=== PATIENT | female | born 1965 | race American Indian/Alaskan Native ===

== ENCOUNTER 2022-03-06 06:26 | Emergency (ER) | payer BC, OTHER ==
[2022-03-06 06:32] VITALS: BP 112/94; PULSE 88
[2022-03-06] MEDS ORDERED: Ondansetron 4 MG/2 ML SDV IVPUSH ONE (07:00)
[2022-03-06] MEDS ORDERED: HYDROmorphone 1 MG/ML Syringe IVPUSH ONE (07:00)
[2022-03-06] MEDS ORDERED: Sodium Chloride 0.9% 1,000 ML IV ONE (07:34)
[2022-03-06 07:48] LABS: ANION GAP 13.6 mEq/L (7-13); CHLORIDE,CL 102 mmol/L (98-107); ESTIMATED GFR 103 mL/min (>=60); SODIUM,NA 137 mmol/L (136-145)
[2022-03-06 09:08] LABS: BENZODIAZEPINE,URINE NEGATIVE (NEGATIVE); MDMA (ECSTASY), URINE NEGATIVE (NEGATIVE); METHADONE,URINE NEGATIVE (NEGATIVE); METHAMPHETAMINES,URINE NEGATIVE (NEGATIVE)
[2022-03-06 09:09] LABS: AMPHETAMINES,URINE NEGATIVE (NEGATIVE); BARBITURATES,URINE NEGATIVE (NEGATIVE); OPIATES,URINE POSITIVE (NEGATIVE); OXYCODONE,URINE NEGATIVE (NEGATIVE); PHENCYCLIDINE,URINE NEGATIVE (NEGATIVE); TCA,URINE NEGATIVE (NEGATIVE)
[2022-03-06] MEDS ORDERED: Ketorolac 30 MG/ML SDV IVPUSH ONE (10:00)
[2022-03-06 11:14] LABS: CORONAVIRUS COVID-19 NAA NEGATIVE (NEGATIVE); RESPIRATORY SYNCYTIAL VIR NAA NEGATIVE (NEGATIVE)
[2022-03-06] MEDS ORDERED: Acetaminophen 500 MG Tab PO ONE (13:22)
== END 2022-03-06 13:36 ==
LOC: DL.ED 06:26
DX: M50.023 Cervical disc disorder at C6-C7 level with myelopathy (principal); M47.812 Spondylosis without myelopathy or radiculopathy, cervical region; M51.36 Other intervertebral disc degeneration, lumbar region; S05.11XA Contusion of eyeball and orbital tissues, right eye, initial encounter; R20.2 Paresthesia of skin; G95.20 Unspecified cord compression; R53.1 Weakness; F17.210 Nicotine dependence, cigarettes, uncomplicated; Z20.822 Contact with and (suspected) exposure to COVID-19
CPT/HCPCS: 0241U; 36415; 72125; 72128; 72131; 80053; 80305-QW; 80307; 81001; 82150; 83605; 83690; 84145; 85025; 85651; 86140; 87040; 96361; 96374; 96375; 99284; 99285-25; A9270-GY; J1170; J1885; J2405; J7030

== ENCOUNTER 2022-04-16 22:33 | Emergency (ER) | payer BC, OTHER ==
[2022-04-16 23:29] VITALS: BP 112/72; PULSE 68
== END 2022-04-17 00:22 | disposition home or self-care (01) ==
LOC: DL.ED 22:33
DX: T83.028A Displacement of other urinary catheter, initial encounter (principal); F17.210 Nicotine dependence, cigarettes, uncomplicated; Z79.899 Other long term (current) drug therapy; Z90.49 Acquired absence of other specified parts of digestive tract
CPT/HCPCS: 51702; 81001; 87086; 99283-25

== ENCOUNTER 2022-04-20 00:09 | Emergency (ER) | payer BC, OTHER ==
[2022-04-20 00:43] VITALS: BP 98/70; PULSE 74
[2022-04-20] MEDS ORDERED: Sodium Chloride 0.9% 10 ML Syringe FLUSH PRN (01:43)
[2022-04-20 02:21] LABS: ANION GAP 9.1 mEq/L (7-13); CHLORIDE,CL 105 mmol/L (98-107); SODIUM,NA 141 mmol/L (136-145)
[2022-04-20 02:31] LABS: ESTIMATED GFR 102 mL/min (>=60)
== END 2022-04-20 02:57 | disposition home or self-care (01) ==
LOC: DL.ED 00:09
DX: T83.038A Leakage of other urinary catheter, initial encounter (principal); K21.9 Gastro-esophageal reflux disease without esophagitis; Z72.0 Tobacco use; Z79.899 Other long term (current) drug therapy
CPT/HCPCS: 36415; 80053; 81001; 83605; 85025; 86140; 99283

== ENCOUNTER 2022-04-23 17:41 | Emergency (ER) | payer BC, OTHER ==
[2022-04-23 18:15] VITALS: BP 96/63; PULSE 73
[2022-04-23] MEDS ORDERED: Tolterodine 2 MG Tab PO ONE (18:25)
== END 2022-04-23 18:45 | disposition home or self-care (01) ==
LOC: DL.ED 17:41
DX: T83.9XXA Unspecified complication of genitourinary prosthetic device, implant and graft, initial encounter (principal); N32.89 Other specified disorders of bladder; Z79.899 Other long term (current) drug therapy; Z90.49 Acquired absence of other specified parts of digestive tract
CPT/HCPCS: 99283; A9270

== ENCOUNTER 2022-07-08 20:20 | Emergency (ER) | payer BC, MEDICAID, OTHER ==
[2022-07-08] MEDS ORDERED: Cephalexin 500 MG Cap PO ONE ×2 (20:21→21:19)
[2022-07-08] MEDS ORDERED: Lidocaine 2% Jelly 10 ML Urojet MUCMEM ONE (21:01)
[2022-07-08 21:06] LABS: BARBITURATES,URINE NEGATIVE (NEGATIVE); BENZODIAZEPINE,URINE NEGATIVE (NEGATIVE); MDMA (ECSTASY), URINE NEGATIVE (NEGATIVE); METHADONE,URINE NEGATIVE (NEGATIVE); METHAMPHETAMINES,URINE NEGATIVE (NEGATIVE); OPIATES,URINE NEGATIVE (NEGATIVE); PHENCYCLIDINE,URINE NEGATIVE (NEGATIVE); TCA,URINE NEGATIVE (NEGATIVE)
[2022-07-08 21:07] LABS: AMPHETAMINES,URINE NEGATIVE (NEGATIVE); OXYCODONE,URINE NEGATIVE (NEGATIVE)
[2022-07-08] MEDS ORDERED: Cephalexin 500 MG Cap ONE (21:24)
[2022-07-08 21:40] VITALS: BP 130/90; PULSE 65
== END 2022-07-08 21:30 | disposition home or self-care (01) ==
LOC: DL.ED 20:20
DX: T83.511A Infection and inflammatory reaction due to indwelling urethral catheter, initial encounter (principal); N39.0 Urinary tract infection, site not specified
CPT/HCPCS: 51702; 80305; 81001; 87086; 87088; 87186; 99284; A9270

== ENCOUNTER 2022-12-30 18:36 | Emergency (ER) | payer MEDICAID ==
[2022-12-30 20:08] LABS: HEMATOCRIT 38.5 % (37.0-47.0); HEMOGLOBIN 12.6 g/dL (12.0-16.0); MEAN CORPUSCULAR HGB CONC 32.7 g/dL (33.0-35.0); MEAN CORPUSCULAR VOLUME 94.8 fL (80-100); RED BLOOD CELL COUNT 4.06 10^6/uL (4.2-5.4); WHITE BLOOD CELL COUNT,WBC 7.2 10^3/uL (5.0-10.0)
[2022-12-30 20:25] LABS: ALANINE AMINOTRANSFERASE,ALT 25 U/L (14-59); ALBUMIN 3.2 g/dL (3.4-5.0); ALKALINE PHOSPHATASE 66 U/L (46-116); ANION GAP 15.2 mEq/L (7-13); ASPARTATE AMNIOTRANSFERASE,AST 12 U/L (15-37); BILIRUBIN TOTAL 0.2 mg/dL (0.2-1.0); BLOOD UREA NITROGEN,BUN 23 mg/dL (7-18); BUN/CREATININE RATIO 20.4 (No establ ref range); CALCIUM 8.1 mg/dL (8.5-10.1); CARBON DIOXIDE,CO2 26 mmol/L (21-32); CHLORIDE,CL 100 mmol/L (98-107); CREATININE 1.13 mg/dL (0.55-1.02); GLUCOSE RANDOM 102 mg/dL (70-99); MAGNESIUM 2.1 mg/dL (1.8-2.4); POTASSIUM,K 4.2 mmol/L (3.5-5.1); PROTEIN TOTAL,TP 6.7 g/dL (6.4-8.2); SODIUM,NA 137 mmol/L (136-145)
[2022-12-30 20:29] LABS: A/G RATIO 0.91; ESTIMATED GFR 57 mL/min (>=60)
[2022-12-30 21:34] LABS: APPEARANCE,URINE CLEAR (CLEAR); BILIRUBIN,URINE NEGATIVE (NEGATIVE); COLOR,URINE YELLOW (YELLOW); GLUCOSE,URINE NEGATIVE (NEGATIVE); KETONES,URINE NEGATIVE (NEGATIVE); LEUKOCYTE ESTERASE,URINE TRACE (NEGATIVE); NITRITE,URINE NEGATIVE (NEGATIVE); OCCULT BLOOD,URINE TRACE-INTACT (NEGATIVE); PROTEIN,URINE NEGATIVE (NEGATIVE); UROBILINOGEN,URINE 0.2 mg/dL (0.2-1.0)
[2022-12-30 21:41] LABS: AMORPHOUS SEDIMENT,URINE FEW /HPF (NOT SEEN); BACTERIA,URINE FEW /HPF (0-FEW/HPF); EPITHELIAL CELLS,URINE FEW /HPF (NOT SEEN); MUCUS,URINE RARE /LPF (NOT SEEN); RBC,URINE 0-5 /HPF (0-5); WBC,URINE 0-5 /HPF (0-5/HPF)
[2022-12-30 22:41] VITALS: BP 132/95; PULSE 59
== END 2022-12-30 22:20 | disposition home or self-care (01) ==
LOC: DL.ED 18:36
DX: T83.091A Other mechanical complication of indwelling urethral catheter, initial encounter (principal); K21.9 Gastro-esophageal reflux disease without esophagitis; Z79.899 Other long term (current) drug therapy
CPT/HCPCS: 36415; 51702; 80053; 81001; 83735; 85027; 87086; 87088; 87186; 99283; 99284

== ENCOUNTER 2023-04-27 04:03 | Emergency (ER) | payer MEDICAID ==
[2023-04-27] MEDS ORDERED: Fluconazole 100 MG Tab PO ONE (04:57)
[2023-04-27 05:06] LABS: APPEARANCE,URINE CLEAR (CLEAR); BILIRUBIN,URINE NEGATIVE (NEGATIVE); COLOR,URINE YELLOW (YELLOW); GLUCOSE,URINE NEGATIVE (NEGATIVE); KETONES,URINE NEGATIVE (NEGATIVE); LEUKOCYTE ESTERASE,URINE SMALL (NEGATIVE); NITRITE,URINE NEGATIVE (NEGATIVE); OCCULT BLOOD,URINE MODERATE (NEGATIVE); PROTEIN,URINE NEGATIVE (NEGATIVE); UROBILINOGEN,URINE 0.2 mg/dL (0.2-1.0)
[2023-04-27 05:17] LABS: BACTERIA,URINE FEW /HPF (0-FEW/HPF); EPITHELIAL CELLS,URINE FEW /HPF (NOT SEEN); MUCUS,URINE RARE /LPF (NOT SEEN)
[2023-04-27 05:47] VITALS: BP 122/86; PULSE 69
[2023-04-27] MEDS ORDERED: Fluconazole 100 MG Tab PO SCH (09:00)
== END 2023-04-27 05:37 | disposition home or self-care (01) ==
LOC: DL.ED 04:03
DX: T83.098A Other mechanical complication of other urinary catheter, initial encounter (principal); B37.31 Acute candidiasis of vulva and vagina; K21.9 Gastro-esophageal reflux disease without esophagitis; Z79.899 Other long term (current) drug therapy; Z98.890 Other specified postprocedural states
CPT/HCPCS: 81001; 87086; 99283; 99284; A9270-GY

== ENCOUNTER 2023-09-08 13:41 | Emergency (ER) | payer MEDICAID ==
[2023-09-08] MEDS: Gabapentin 300 MG Cap PO ONE (14:36)
[2023-09-08 14:38] LABS: BASOPHILS PERCENT AUTO 0.6 % (0.0-1.0); EOSINOPHILS PERCENT AUTO 5.6 % (1.0-3.0); HEMOGLOBIN 13.3 g/dL (12.0-16.0); LYMPHOCYTES PERCENT AUTO 39.1 % (20.5-50.1); MEAN CORPUSCULAR HEMOGLOBIN 30.9 pg (27.0-34.0); MEAN CORPUSCULAR HGB CONC 33.3 g/dL (33.0-35.0); MONOCYTES PERCENT AUTO 8.1 % (2-8); NEUTROPHILS PERCENT AUTO 46.6 % (42.2-75.2); PLATELET COUNT,PLT 192 10^3/uL (150-450)
[2023-09-08 14:57] LABS: ALANINE AMINOTRANSFERASE,ALT 15 U/L (14-59); ALBUMIN 3.1 g/dL (3.4-5.0); ALKALINE PHOSPHATASE 78 U/L (46-116); ANION GAP 14.4 mEq/L (7-13); ASPARTATE AMNIOTRANSFERASE,AST 9 U/L (15-37); BILIRUBIN TOTAL 0.4 mg/dL (0.2-1.0); BLOOD UREA NITROGEN,BUN 13 mg/dL (7-18); BUN/CREATININE RATIO 19.1 (No establ ref range); CALCIUM 8.4 mg/dL (8.5-10.1); CARBON DIOXIDE,CO2 26 mmol/L (21-32); CHLORIDE,CL 105 mmol/L (98-107); CREATININE 0.68 mg/dL (0.55-1.02); GLUCOSE RANDOM 102 mg/dL (70-99); POTASSIUM,K 3.4 mmol/L (3.5-5.1); PROTEIN TOTAL,TP 6.7 g/dL (6.4-8.2); SODIUM,NA 142 mmol/L (136-145)
[2023-09-08 15:00] LABS: A/G RATIO 0.86; ESTIMATED GFR 102 mL/min (>=60)
[2023-09-08] MEDS ORDERED: Gabapentin 300 MG Cap ONE (15:33)
== END 2023-09-08 14:35 | disposition home or self-care (01) ==
LOC: DL.ED 13:41
DX: G62.9 Polyneuropathy, unspecified (principal); F17.210 Nicotine dependence, cigarettes, uncomplicated; Z86.19 Personal history of other infectious and parasitic diseases; Z90.49 Acquired absence of other specified parts of digestive tract
CPT/HCPCS: 36415; 80053; 85025; 99283; 99284; A9270

== ENCOUNTER 2024-04-22 16:04 | Emergency (ER) | payer MEDICAID ==
[2024-04-22 17:42] LABS: APPEARANCE,URINE SLIGHTLY CLOUDY (CLEAR); BILIRUBIN,URINE NEGATIVE (NEGATIVE); COLOR,URINE YELLOW (YELLOW); GLUCOSE,URINE NEGATIVE (NEGATIVE); KETONES,URINE NEGATIVE (NEGATIVE); LEUKOCYTE ESTERASE,URINE MODERATE (NEGATIVE); NITRITE,URINE NEGATIVE (NEGATIVE); OCCULT BLOOD,URINE SMALL (NEGATIVE); PROTEIN,URINE 30 (NEGATIVE)
[2024-04-22 17:52] LABS: BACTERIA,URINE FEW /HPF (0-FEW/HPF); EPITHELIAL CELLS,URINE FEW /HPF (NOT SEEN); MUCUS,URINE FEW /LPF (NOT SEEN); WBC,URINE 30-40 /HPF (0-5/HPF)
[2024-04-22] MEDS: cefTRIAXone 1 GM, Lidocaine 1% 2.1 ML IM ONE (18:11)
[2024-04-22 18:35] VITALS: BP 126/84; PULSE 86
== END 2024-04-22 18:28 | disposition home or self-care (01) ==
LOC: DL.ED 16:04
DX: N39.0 Urinary tract infection, site not specified (principal); Z90.49 Acquired absence of other specified parts of digestive tract; F17.210 Nicotine dependence, cigarettes, uncomplicated; Z79.899 Other long term (current) drug therapy
CPT/HCPCS: 81001; 87086; 96372; 99283; 99284; J0696; 87088; 87186; J3490

== ENCOUNTER 2024-07-18 10:46 | Emergency (ER) | payer BC, OTHER ==
[2024-07-18 12:02] LABS: APPEARANCE,URINE CLEAR (CLEAR); BILIRUBIN,URINE NEGATIVE (NEGATIVE); GLUCOSE,URINE NEGATIVE (NEGATIVE); KETONES,URINE NEGATIVE (NEGATIVE); LEUKOCYTE ESTERASE,URINE NEGATIVE (NEGATIVE); NITRITE,URINE NEGATIVE (NEGATIVE); OCCULT BLOOD,URINE TRACE-INTACT (NEGATIVE); PROTEIN,URINE NEGATIVE (NEGATIVE); UROBILINOGEN,URINE 0.2 mg/dL (0.2-1.0)
[2024-07-18 12:03] LABS: COLOR,URINE STRAW (YELLOW)
[2024-07-18 12:15] LABS: BACTERIA,URINE FEW /HPF (0-FEW/HPF); EPITHELIAL CELLS,URINE NOT SEEN /HPF (NOT SEEN); RBC,URINE 0-5 /HPF (0-5); WBC,URINE 0-5 /HPF (0-5/HPF)
[2024-07-18 12:25] VITALS: BP 130/77; PULSE 71
== END 2024-07-18 12:10 | disposition home or self-care (01) ==
LOC: DL.ED 10:46
DX: T83.091A Other mechanical complication of indwelling urethral catheter, initial encounter (principal); Z90.49 Acquired absence of other specified parts of digestive tract; Z79.899 Other long term (current) drug therapy
CPT/HCPCS: 51702; 81001; 99283

== ENCOUNTER 2024-10-18 09:46 | Emergency (ER) | payer MEDICARE, OTHER ==
[2024-10-18] MEDS: Phenazopyridine 95 MG Tab PO ONE (10:24)
[2024-10-18] MEDS: Ketorolac 30 MG/ML SDV IM ONE (10:24)
[2024-10-18 10:26] VITALS: BP 142/92; PULSE 92
[2024-10-18 10:43] LABS: APPEARANCE,URINE SLIGHTLY CLOUDY (CLEAR); BILIRUBIN,URINE NEGATIVE (NEGATIVE); COLOR,URINE YELLOW (YELLOW); GLUCOSE,URINE NEGATIVE (NEGATIVE); KETONES,URINE NEGATIVE (NEGATIVE); LEUKOCYTE ESTERASE,URINE SMALL (NEGATIVE); NITRITE,URINE POSITIVE (NEGATIVE); OCCULT BLOOD,URINE MODERATE (NEGATIVE); PROTEIN,URINE 100 (NEGATIVE); UROBILINOGEN,URINE 0.2 mg/dL (0.2-1.0)
[2024-10-18 10:52] LABS: WBC,URINE 20-30 /HPF (0-5/HPF)
[2024-10-18 10:53] LABS: BACTERIA,URINE MANY /HPF (0-FEW/HPF); EPITHELIAL CELLS,URINE FEW /HPF (NOT SEEN); MUCUS,URINE FEW /LPF (NOT SEEN)
[2024-10-18] MEDS: Take Home: Cephalexin 500 MG Cap, 6 Cap Pack PO ONE (11:11)
== END 2024-10-18 11:26 | disposition home or self-care (01) ==
LOC: DL.ED 09:46
DX: T83.091A Other mechanical complication of indwelling urethral catheter, initial encounter (principal); Z79.899 Other long term (current) drug therapy; Z86.16 Personal history of COVID-19; Z90.49 Acquired absence of other specified parts of digestive tract
CPT/HCPCS: 81001; 87086; 87088; 87186; 87210; 96372; 99283; 99284; A9270; J1885

== ENCOUNTER 2024-11-22 19:22 | Emergency (ER) | payer MEDICARE, OTHER ==
[2024-11-22 21:13] LABS: APPEARANCE,URINE CLOUDY (CLEAR); BILIRUBIN,URINE NEGATIVE (NEGATIVE); COLOR,URINE YELLOW (YELLOW); GLUCOSE,URINE NEGATIVE (NEGATIVE); KETONES,URINE NEGATIVE (NEGATIVE); LEUKOCYTE ESTERASE,URINE SMALL (NEGATIVE); NITRITE,URINE POSITIVE (NEGATIVE); OCCULT BLOOD,URINE TRACE-LYSED (NEGATIVE); PROTEIN,URINE NEGATIVE (NEGATIVE)
[2024-11-22 21:27] LABS: BACTERIA,URINE MANY /HPF (0-FEW/HPF); EPITHELIAL CELLS,URINE FEW /HPF (NOT SEEN); RBC,URINE 0-5 /HPF (0-5); WBC,URINE 40-50 /HPF (0-5/HPF)
[2024-11-22] MEDS ORDERED: Sodium Chloride 0.9% 10 ML Syringe FLUSH PRN (21:32)
[2024-11-22 21:57] LABS: BASOPHILS PERCENT AUTO 0.5 % (0.0-1.0); EOSINOPHILS PERCENT AUTO 5.3 % (1.0-3.0); HEMATOCRIT 35.4 % (37.0-47.0); LYMPHOCYTES PERCENT AUTO 39.6 % (20.5-50.1); MEAN CORPUSCULAR HGB CONC 33.9 g/dL (33.0-35.0); MEAN CORPUSCULAR VOLUME 91.5 fL (80-100); MONOCYTES PERCENT AUTO 9.5 % (2-8); NEUTROPHILS PERCENT AUTO 45.1 % (42.2-75.2); PLATELET COUNT,PLT 226 10^3/uL (150-450); RED BLOOD CELL COUNT 3.87 10^6/uL (4.2-5.4); WHITE BLOOD CELL COUNT,WBC 7.5 10^3/uL (5.0-10.0)
[2024-11-22] MEDS: Sodium Chloride 0.9% 1,000 ML IV ONE (22:13)
[2024-11-22] MEDS: cefTRIAXone 2 GM Vial IVPUSH ONE (22:14)
[2024-11-22 22:24] LABS: LACTIC ACID 0.4 mmol/L (0.4-2.0)
[2024-11-22 22:30] LABS: ALANINE AMINOTRANSFERASE,ALT 16 U/L (14-59); ALBUMIN 2.9 g/dL (3.4-5.0); ALKALINE PHOSPHATASE 57 U/L (46-116); ANION GAP 11.9 mEq/L (7-13); ASPARTATE AMNIOTRANSFERASE,AST 12 U/L (15-37); BILIRUBIN TOTAL 0.3 mg/dL (0.2-1.0); BLOOD UREA NITROGEN,BUN 13 mg/dL (7-18); BUN/CREATININE RATIO 18.1 (No establ ref range); CALCIUM 8.1 mg/dL (8.5-10.1); CARBON DIOXIDE,CO2 26 mmol/L (21-32); CHLORIDE,CL 99 mmol/L (98-107); CREATININE 0.72 mg/dL (0.55-1.02); GLUCOSE RANDOM 96 mg/dL (70-99); MAGNESIUM 1.9 mg/dL (1.8-2.4); POTASSIUM,K 3.9 mmol/L (3.5-5.1); SODIUM,NA 133 mmol/L (136-145)
[2024-11-22 22:34] LABS: A/G RATIO 0.94; C-REACTIVE PROTEIN < 0.50 ng/dL (<=0.50); ESTIMATED GFR 97 mL/min (>=60)
[2024-11-22 23:11] VITALS: BP 97/66; PULSE 80
== END 2024-11-22 23:27 | disposition home or self-care (01) ==
LOC: DL.ED 19:22
DX: N39.0 Urinary tract infection, site not specified (principal); Z79.899 Other long term (current) drug therapy; Z86.16 Personal history of COVID-19; Z90.49 Acquired absence of other specified parts of digestive tract
CPT/HCPCS: 36415; 80053; 81001; 83605; 83735; 85025; 86140; 87086; 96361; 96374; 99284; J0696; J7030; 87088; 87186

== ENCOUNTER 2024-12-25 21:30 | Emergency (ER) | payer MEDICARE, OTHER ==
[2024-12-25] MEDS ORDERED: Sodium Chloride 0.9% 10 ML Syringe FLUSH PRN (21:50)
[2024-12-25 22:12] LABS: BASOPHILS PERCENT AUTO 0.7 % (0.0-1.0); EOSINOPHILS PERCENT AUTO 4.6 % (1.0-3.0); LYMPHOCYTES PERCENT AUTO 33.8 % (20.5-50.1); MONOCYTES PERCENT AUTO 8.0 % (2-8); NEUTROPHILS PERCENT AUTO 52.9 % (42.2-75.2); PLATELET COUNT,PLT 242 10^3/uL (150-450); RED BLOOD CELL COUNT 3.79 10^6/uL (4.2-5.4); WHITE BLOOD CELL COUNT,WBC 7.0 10^3/uL (5.0-10.0)
[2024-12-25 22:29] LABS: ALANINE AMINOTRANSFERASE,ALT 19 U/L (14-59); ASPARTATE AMNIOTRANSFERASE,AST 13 U/L (15-37); BILIRUBIN TOTAL 0.4 mg/dL (0.2-1.0); BLOOD UREA NITROGEN,BUN 10 mg/dL (7-18); CARBON DIOXIDE,CO2 28 mmol/L (21-32); CHLORIDE,CL 100 mmol/L (98-107); CREATININE 0.72 mg/dL (0.55-1.02); GLUCOSE RANDOM 88 mg/dL (70-99); POTASSIUM,K 4.1 mmol/L (3.5-5.1); PROTEIN TOTAL,TP 6.1 g/dL (6.4-8.2); SODIUM,NA 132 mmol/L (136-145)
[2024-12-25 22:33] LABS: LACTIC ACID 0.7 mmol/L (0.4-2.0)
[2024-12-25 22:34] LABS: A/G RATIO 1.03; ESTIMATED GFR 97 mL/min (>=60)
[2024-12-25 23:05] LABS: APPEARANCE,URINE SLIGHTLY CLOUDY (CLEAR); GLUCOSE,URINE NEGATIVE (NEGATIVE); OCCULT BLOOD,URINE NEGATIVE (NEGATIVE)
[2024-12-25 23:15] LABS: EPITHELIAL CELLS,URINE FEW /HPF (NOT SEEN)
[2024-12-26 00:01] VITALS: BP 109/70; PULSE 71
[2024-12-26] MEDS: Take Home: Ciprofloxacin HCl 500 MG, 6 Tab Pack PO ONE (00:23)
== END 2024-12-26 02:01 | disposition home or self-care (01) ==
LOC: DL.ED 21:30
DX: B37.31 Acute candidiasis of vulva and vagina (principal); N30.00 Acute cystitis without hematuria; N31.9 Neuromuscular dysfunction of bladder, unspecified; M19.90 Unspecified osteoarthritis, unspecified site; F17.210 Nicotine dependence, cigarettes, uncomplicated; Z79.899 Other long term (current) drug therapy; Z79.51 Long term (current) use of inhaled steroids; Z86.16 Personal history of COVID-19; Z90.49 Acquired absence of other specified parts of digestive tract; Z96.0 Presence of urogenital implants
CPT/HCPCS: 36415; 80053; 81001; 83605; 85025; 87086; 87088; 87186; 87210; 99284; A9270

== ENCOUNTER 2025-01-08 07:51 | Inpatient (IN) | payer MEDICARE, OTHER ==
[2025-01-08] MEDS ORDERED: Sodium Chloride 0.9% 10 ML Syringe FLUSH PRN (08:04)
[2025-01-08] MEDS: Ondansetron 4 MG/2 ML SDV IVPUSH ONE (08:18)
[2025-01-08] MEDS: fentaNYL 100 MCG/2 ML SDV IVPUSH ONE (08:19)
[2025-01-08 08:25] LABS: BASOPHILS PERCENT AUTO 0.4 % (0.0-1.0); EOSINOPHILS PERCENT AUTO 0.7 % (1.0-3.0); LYMPHOCYTES PERCENT AUTO 16.8 % (20.5-50.1); MONOCYTES PERCENT AUTO 6.4 % (2-8); NEUTROPHILS PERCENT AUTO 75.7 % (42.2-75.2); PLATELET COUNT,PLT 273 10^3/uL (150-450); RED BLOOD CELL COUNT 4.77 10^6/uL (4.2-5.4); WHITE BLOOD CELL COUNT,WBC 8.3 10^3/uL (5.0-10.0)
[2025-01-08 08:44] LABS: A/G RATIO 1.1; ALANINE AMINOTRANSFERASE,ALT 26 U/L (14-59); ASPARTATE AMNIOTRANSFERASE,AST 13 U/L (15-37); BILIRUBIN TOTAL 1.0 mg/dL (0.2-1.0); BLOOD UREA NITROGEN,BUN 11 mg/dL (7-18); CARBON DIOXIDE,CO2 24 mmol/L (21-32); CREATININE 0.76 mg/dL (0.55-1.02); GLUCOSE RANDOM 91 mg/dL (70-99); PROTEIN TOTAL,TP 7.4 g/dL (6.4-8.2)
[2025-01-08 08:51] LABS: CHLORIDE,CL 87 mmol/L (98-107); POTASSIUM,K 4.2 mmol/L (3.5-5.1); SODIUM,NA 125 mmol/L (136-145)
[2025-01-08 08:55] LABS: ESTIMATED GFR 91 mL/min (>=60)
[2025-01-08] MEDS: Magnesium Sulfate 2 GM/50 mL 2 GM in Premix Bag 1 BAG IV ONE (09:04)
[2025-01-08] MEDS: Iopamidol 612 MG/ML 100 ML Bottle IVPUSH ONE (09:07)
[2025-01-08 09:37] LABS: APPEARANCE,URINE SLIGHTLY CLOUDY (CLEAR); GLUCOSE,URINE NEGATIVE (NEGATIVE); OCCULT BLOOD,URINE LARGE (NEGATIVE)
[2025-01-08 09:49] LABS: EPITHELIAL CELLS,URINE RARE /HPF (NOT SEEN)
[2025-01-08] MEDS ORDERED: Ketorolac 30 MG/ML SDV IVPUSH PRN (10:42)
[2025-01-08 10:55] LABS: AMPHETAMINES,URINE NEGATIVE (NEGATIVE); BARBITURATES,URINE NEGATIVE (NEGATIVE); MDMA (ECSTASY), URINE NEGATIVE (NEGATIVE); METHAMPHETAMINES,URINE NEGATIVE (NEGATIVE); OPIATES,URINE NEGATIVE (NEGATIVE); OXYCODONE,URINE NEGATIVE (NEGATIVE); PHENCYCLIDINE,URINE NEGATIVE (NEGATIVE); TCA,URINE NEGATIVE (NEGATIVE)
[2025-01-08 11:02] LABS: INR 1.0 (0.9-1.2); PTT,PARTIAL THROMBOPLSTIN TIME 29.0 SEC (22.0-34.0)
[2025-01-08] MEDS ORDERED: Ondansetron 4 MG/2 ML SDV IVPUSH PRN (14:00)
[2025-01-08] MEDS: Psyllium Husk Powder (4 in 1) 3.4 GM Packet PO SCH (14:22)
[2025-01-08 15:16] LABS: IRON,FE 95.0 ug/dL (50-170); PERCENT FE SATURATION 34.1 % (20.0-50.0)
[2025-01-08 15:29] LABS: FOLIC ACID 15.1 ng/mL (8.6-58.9)
[2025-01-09 06:31] LABS: BASOPHILS PERCENT AUTO 1.0 % (0.0-1.0); EOSINOPHILS PERCENT AUTO 2.2 % (1.0-3.0); LYMPHOCYTES PERCENT AUTO 34.6 % (20.5-50.1); MONOCYTES PERCENT AUTO 8.7 % (2-8); NEUTROPHILS PERCENT AUTO 53.5 % (42.2-75.2); PLATELET COUNT,PLT 260 10^3/uL (150-450); RED BLOOD CELL COUNT 3.90 10^6/uL (4.2-5.4); WHITE BLOOD CELL COUNT,WBC 5.8 10^3/uL (5.0-10.0)
[2025-01-09 06:51] LABS: ALANINE AMINOTRANSFERASE,ALT 24.0 U/L (14-59); ASPARTATE AMNIOTRANSFERASE,AST 14.0 U/L (15-37); BILIRUBIN TOTAL 0.6 mg/dL (0.2-1.0); BLOOD UREA NITROGEN,BUN 8.0 mg/dL (7-18); CARBON DIOXIDE,CO2 26.0 mmol/L (21-32); CHLORIDE,CL 98.0 mmol/L (98-107); CREATININE 0.41 mg/dL (0.55-1.02); EST CRCL DRUG DOSING (CG) 129.15 mL/min; GLUCOSE RANDOM 81.0 mg/dL (70-99); POTASSIUM,K 4.1 mmol/L (3.5-5.1); PROTEIN TOTAL,TP 5.7 g/dL (6.4-8.2); SODIUM,NA 133.0 mmol/L (136-145)
[2025-01-09 06:56] LABS: A/G RATIO 1.04; ESTIMATED GFR 114.0 mL/min (>=60)
[2025-01-09] MEDS: Tolterodine 2 MG Cap.ER PO SCH (08:46)
[2025-01-10 05:34] LABS: BASOPHILS PERCENT AUTO 1.0 % (0.0-1.0); EOSINOPHILS PERCENT AUTO 4.0 % (1.0-3.0); LYMPHOCYTES PERCENT AUTO 35.9 % (20.5-50.1); MONOCYTES PERCENT AUTO 9.5 % (2-8); NEUTROPHILS PERCENT AUTO 49.6 % (42.2-75.2); PLATELET COUNT,PLT 224 10^3/uL (150-450); RED BLOOD CELL COUNT 3.70 10^6/uL (4.2-5.4); WHITE BLOOD CELL COUNT,WBC 6.3 10^3/uL (5.0-10.0)
[2025-01-10 06:10] LABS: ALANINE AMINOTRANSFERASE,ALT 27.0 U/L (14-59); ASPARTATE AMNIOTRANSFERASE,AST 17.0 U/L (15-37); BILIRUBIN TOTAL 0.4 mg/dL (0.2-1.0); BLOOD UREA NITROGEN,BUN 8.0 mg/dL (7-18); CARBON DIOXIDE,CO2 27.0 mmol/L (21-32); CHLORIDE,CL 101.0 mmol/L (98-107); CREATININE 0.41 mg/dL (0.55-1.02); EST CRCL DRUG DOSING (CG) 122.73 mL/min; GLUCOSE RANDOM 79.0 mg/dL (70-99); POTASSIUM,K 3.6 mmol/L (3.5-5.1); PROTEIN TOTAL,TP 5.4 g/dL (6.4-8.2); SODIUM,NA 134.0 mmol/L (136-145)
[2025-01-10 06:11] LABS: A/G RATIO 1.0; ESTIMATED GFR 114.0 mL/min (>=60)
[2025-01-10] MEDS: Magnesium Sulfate 2 GM/50 mL 2 GM in Premix Bag 1 BAG IV ONE (08:41)
[2025-01-11 05:46] LABS: BASOPHILS PERCENT AUTO 1.0 % (0.0-1.0); EOSINOPHILS PERCENT AUTO 5.2 % (1.0-3.0); LYMPHOCYTES PERCENT AUTO 37.0 % (20.5-50.1); MONOCYTES PERCENT AUTO 8.1 % (2-8); NEUTROPHILS PERCENT AUTO 48.7 % (42.2-75.2); PLATELET COUNT,PLT 231 10^3/uL (150-450); RED BLOOD CELL COUNT 3.73 10^6/uL (4.2-5.4); WHITE BLOOD CELL COUNT,WBC 6.8 10^3/uL (5.0-10.0)
[2025-01-11 06:16] LABS: ALANINE AMINOTRANSFERASE,ALT 25.0 U/L (14-59); ASPARTATE AMNIOTRANSFERASE,AST 16.0 U/L (15-37); BILIRUBIN TOTAL 0.5 mg/dL (0.2-1.0); BLOOD UREA NITROGEN,BUN 8.0 mg/dL (7-18); CARBON DIOXIDE,CO2 27.0 mmol/L (21-32); CHLORIDE,CL 102.0 mmol/L (98-107); CREATININE 0.33 mg/dL (0.55-1.02); EST CRCL DRUG DOSING (CG) 153.95 mL/min; GLUCOSE RANDOM 85.0 mg/dL (70-99); POTASSIUM,K 3.9 mmol/L (3.5-5.1); PROTEIN TOTAL,TP 5.6 g/dL (6.4-8.2); SODIUM,NA 134.0 mmol/L (136-145)
[2025-01-11 06:17] LABS: A/G RATIO 1.0; ESTIMATED GFR 120.0 mL/min (>=60)
[2025-01-11 12:49] VITALS: BP 134/88; PULSE 72
== END 2025-01-11 13:20 | disposition home or self-care (01) | DRG 690 ==
LOC: DL.ED 07:51 → DL.MS 10:09 → DL.ED 10:16
PROVIDERS: ADMIT Student in an Organized Health Care Education/Training Program; ATTEND Student in an Organized Health Care Education/Training Program
DX: N30.01 Acute cystitis with hematuria (principal); E87.1 Hypo-osmolality and hyponatremia; M47.12 Other spondylosis with myelopathy, cervical region; Z66 Do not resuscitate; E86.0 Dehydration; H54.7 Unspecified visual loss; G62.9 Polyneuropathy, unspecified; E88.09 Other disorders of plasma-protein metabolism, not elsewhere classified; F32.A Depression, unspecified; E83.42 Hypomagnesemia; K21.9 Gastro-esophageal reflux disease without esophagitis; F17.200 Nicotine dependence, unspecified, uncomplicated; E87.8 Other disorders of electrolyte and fluid balance, not elsewhere classified; N31.9 Neuromuscular dysfunction of bladder, unspecified; M19.90 Unspecified osteoarthritis, unspecified site; Z86.16 Personal history of COVID-19; Z90.49 Acquired absence of other specified parts of digestive tract; Z98.891 History of uterine scar from previous surgery; Z88.8 Allergy status to other drugs, medicaments and biological substances; Z79.899 Other long term (current) drug therapy; Z98.890 Other specified postprocedural states
CPT/HCPCS: 36415; 51705; 74177; 80053; 80305; 81001; 82607; 82728; 82746; 83540; 83550; 83605; 83735; 85025; 85610; 85730; 86140; 87040 ×2; 87086; 96361; 96365; 96375; 99285; A9270 ×2; J0692; J2405; J3010; J3475; J7030; Q9967; 84295; 94010; 99223; 99232; 99238; J1171; J1650

== ENCOUNTER 2025-01-19 07:42 | Emergency (ER) | payer MEDICARE, OTHER ==
[2025-01-19 08:03] LABS: APPEARANCE,URINE CLEAR (CLEAR); GLUCOSE,URINE NEGATIVE (NEGATIVE); OCCULT BLOOD,URINE MODERATE (NEGATIVE)
[2025-01-19 08:11] VITALS: BP 127/92; PULSE 79
[2025-01-19 08:15] LABS: EPITHELIAL CELLS,URINE RARE /HPF (NOT SEEN)
== END 2025-01-19 08:30 | disposition home or self-care (01) ==
LOC: DL.ED 07:42
DX: N30.01 Acute cystitis with hematuria (principal); B37.31 Acute candidiasis of vulva and vagina; K21.9 Gastro-esophageal reflux disease without esophagitis; Z88.8 Allergy status to other drugs, medicaments and biological substances; Z79.899 Other long term (current) drug therapy; Z86.16 Personal history of COVID-19; Z90.49 Acquired absence of other specified parts of digestive tract
CPT/HCPCS: 81001; 99283

== ENCOUNTER 2025-01-20 01:59 | Emergency (ER) | payer MEDICARE, OTHER ==
[2025-01-20 02:46] LABS: BASOPHILS PERCENT AUTO 0.5 % (0.0-1.0); EOSINOPHILS PERCENT AUTO 5.5 % (1.0-3.0); LYMPHOCYTES PERCENT AUTO 27.2 % (20.5-50.1); MONOCYTES PERCENT AUTO 7.4 % (2-8); NEUTROPHILS PERCENT AUTO 59.4 % (42.2-75.2); PLATELET COUNT,PLT 246 10^3/uL (150-450); RED BLOOD CELL COUNT 4.02 10^6/uL (4.2-5.4); WHITE BLOOD CELL COUNT,WBC 7.3 10^3/uL (5.0-10.0)
[2025-01-20] MEDS: Phenazopyridine 95 MG Tab PO ONE (02:51)
[2025-01-20 03:01] LABS: A/G RATIO 1.1; ALANINE AMINOTRANSFERASE,ALT 26.0 U/L (14-59); ASPARTATE AMNIOTRANSFERASE,AST 17.0 U/L (15-37); BILIRUBIN TOTAL 0.3 mg/dL (0.2-1.0); BLOOD UREA NITROGEN,BUN 14.0 mg/dL (7-18); CARBON DIOXIDE,CO2 31.0 mmol/L (21-32); CHLORIDE,CL 99.0 mmol/L (98-107); CREATININE 0.61 mg/dL (0.55-1.02); EST CRCL DRUG DOSING (CG) 83.16 mL/min; ESTIMATED GFR 104.0 mL/min (>=60); GLUCOSE RANDOM 102.0 mg/dL (70-99); POTASSIUM,K 4.5 mmol/L (3.5-5.1); PROTEIN TOTAL,TP 6.6 g/dL (6.4-8.2); SODIUM,NA 134.0 mmol/L (136-145)
[2025-01-20 03:04] LABS: LACTIC ACID 1.1 mmol/L (0.4-2.0)
[2025-01-20 04:17] VITALS: BP 119/75; PULSE 62
== END 2025-01-20 03:50 | disposition home or self-care (01) ==
LOC: DL.ED 01:59
DX: R30.0 Dysuria (principal); F17.210 Nicotine dependence, cigarettes, uncomplicated; K21.9 Gastro-esophageal reflux disease without esophagitis; Z86.16 Personal history of COVID-19; Z79.899 Other long term (current) drug therapy; Z88.8 Allergy status to other drugs, medicaments and biological substances
CPT/HCPCS: 36415; 80053; 83605; 83690; 85025; 99283; A9270

== ENCOUNTER 2025-03-12 14:04 | Emergency (ER) | payer MEDICARE, OTHER ==
[2025-03-12] MEDS ORDERED: Sodium Chloride 0.9% 10 ML Syringe FLUSH PRN (14:37)
[2025-03-12 14:47] LABS: BASOPHILS PERCENT AUTO 0.3 % (0.0-1.0); EOSINOPHILS PERCENT AUTO 3.4 % (1.0-3.0); LYMPHOCYTES PERCENT AUTO 29.5 % (20.5-50.1); MONOCYTES PERCENT AUTO 7.4 % (2-8); NEUTROPHILS PERCENT AUTO 59.4 % (42.2-75.2); PLATELET COUNT,PLT 231 10^3/uL (150-450); RED BLOOD CELL COUNT 4.50 10^6/uL (4.2-5.4); WHITE BLOOD CELL COUNT,WBC 8.6 10^3/uL (5.0-10.0)
[2025-03-12] MEDS: fentaNYL 100 MCG/2 ML SDV IVPUSH ONE (14:47)
[2025-03-12 15:07] LABS: A/G RATIO 0.9; ALANINE AMINOTRANSFERASE,ALT 24.0 U/L (14-59); ASPARTATE AMNIOTRANSFERASE,AST 15.0 U/L (15-37); BILIRUBIN TOTAL 0.6 mg/dL (0.2-1.0); BLOOD UREA NITROGEN,BUN 16.0 mg/dL (7-18); CARBON DIOXIDE,CO2 22.0 mmol/L (21-32); CREATININE 0.53 mg/dL (0.55-1.02); EST CRCL DRUG DOSING (CG) 99.42 mL/min; GLUCOSE RANDOM 81.0 mg/dL (70-99); POTASSIUM,K 4.0 mmol/L (3.5-5.1); PROTEIN TOTAL,TP 7.4 g/dL (6.4-8.2); SODIUM,NA 132.0 mmol/L (136-145)
[2025-03-12 15:13] LABS: CHLORIDE,CL 97.0 mmol/L (98-107); ESTIMATED GFR 107.0 mL/min (>=60)
[2025-03-12] MEDS: Magnesium Sulfate 2 GM/50 mL 2 GM in Premix Bag 1 BAG IV ONE (15:31)
[2025-03-12 15:44] LABS: APPEARANCE,URINE CLEAR (CLEAR); GLUCOSE,URINE NEGATIVE (NEGATIVE); OCCULT BLOOD,URINE SMALL (NEGATIVE)
[2025-03-12 15:53] LABS: EPITHELIAL CELLS,URINE FEW /HPF (NOT SEEN)
[2025-03-12] MEDS: Iopamidol 612 MG/ML 100 ML Bottle IVPUSH ONE (16:33)
[2025-03-12 16:35] VITALS: BP 131/84; PULSE 81
[2025-03-12] MEDS: Take Home: Ciprofloxacin HCl 500 MG, 6 Tab Pack PO ONE (17:46)
== END 2025-03-12 18:00 | disposition home or self-care (01) ==
LOC: DL.ED 14:04
DX: N39.0 Urinary tract infection, site not specified (principal); E83.42 Hypomagnesemia; K21.9 Gastro-esophageal reflux disease without esophagitis; Z88.8 Allergy status to other drugs, medicaments and biological substances; Z79.899 Other long term (current) drug therapy; Z86.16 Personal history of COVID-19
CPT/HCPCS: 36415; 74177; 80053; 81001; 83735; 85025; 87086; 87088; 87186; 96365; 96375; 99283; 99284; A9270; J3010; J3475; J7040; Q9967

== ENCOUNTER 2025-04-08 13:01 | Emergency (ER) | payer MEDICARE, OTHER ==
[2025-04-08] MEDS ORDERED: Sodium Chloride 0.9% 10 ML Syringe FLUSH PRN (13:18)
[2025-04-08] MEDS: Ketorolac 30 MG/ML SDV IVPUSH ONE (13:34)
[2025-04-08 13:36] LABS: BASOPHILS PERCENT AUTO 0.9 % (0.0-1.0); EOSINOPHILS PERCENT AUTO 1.6 % (1.0-3.0); LYMPHOCYTES PERCENT AUTO 33.7 % (20.5-50.1); MONOCYTES PERCENT AUTO 8.5 % (2-8); NEUTROPHILS PERCENT AUTO 55.3 % (42.2-75.2); PLATELET COUNT,PLT 211 10^3/uL (150-450); RED BLOOD CELL COUNT 4.42 10^6/uL (4.2-5.4); WHITE BLOOD CELL COUNT,WBC 5.7 10^3/uL (5.0-10.0)
[2025-04-08 13:45] LABS: APPEARANCE,URINE CLEAR (CLEAR); GLUCOSE,URINE NEGATIVE (NEGATIVE); OCCULT BLOOD,URINE MODERATE (NEGATIVE)
[2025-04-08 13:55] LABS: EPITHELIAL CELLS,URINE OCCASIONAL /HPF (NOT SEEN); FINE GRANULAR CASTS,URINE RARE /LPF (NOT SEEN)
[2025-04-08 14:48] LABS: LACTIC ACID 0.7 mmol/L (0.4-2.0)
[2025-04-08 14:59] LABS: A/G RATIO 1.1; ALANINE AMINOTRANSFERASE,ALT 32.0 U/L (14-59); ASPARTATE AMNIOTRANSFERASE,AST 18.0 U/L (15-37); BILIRUBIN TOTAL 0.8 mg/dL (0.2-1.0); BLOOD UREA NITROGEN,BUN 10.0 mg/dL (7-18); CARBON DIOXIDE,CO2 22.0 mmol/L (21-32); CHLORIDE,CL 97.0 mmol/L (98-107); CREATININE 0.62 mg/dL (0.55-1.02); EST CRCL DRUG DOSING (CG) 77.91 mL/min; ESTIMATED GFR 103.0 mL/min (>=60); GLUCOSE RANDOM 62.0 mg/dL (70-99); POTASSIUM,K 3.8 mmol/L (3.5-5.1); PROTEIN TOTAL,TP 7.2 g/dL (6.4-8.2); SODIUM,NA 134.0 mmol/L (136-145)
[2025-04-08 15:39] VITALS: BP 124/89; PULSE 90
== END 2025-04-08 15:00 | disposition home or self-care (01) ==
LOC: DL.ED 13:01
DX: N30.01 Acute cystitis with hematuria (principal); K21.9 Gastro-esophageal reflux disease without esophagitis; Z88.8 Allergy status to other drugs, medicaments and biological substances; Z79.899 Other long term (current) drug therapy; Z86.16 Personal history of COVID-19; Z90.49 Acquired absence of other specified parts of digestive tract
CPT/HCPCS: 36415; 80053; 81001; 83605; 83735; 85025; 86140; 87040; 96361; 96374; 96375; 99283; J0696; J1885; J7030

== ENCOUNTER 2025-04-12 18:17 | Emergency (ER) | payer MEDICARE, OTHER ==
[2025-04-12 19:04] VITALS: BP 130/99; PULSE 97
== END 2025-04-12 18:40 | disposition home or self-care (01) ==
LOC: DL.ED 18:17
DX: Z02.89 Encounter for other administrative examinations (principal); Z88.8 Allergy status to other drugs, medicaments and biological substances; Z79.899 Other long term (current) drug therapy
CPT/HCPCS: 99282; 99283

== ENCOUNTER 2025-05-03 11:26 | Emergency (ER) | payer MEDICARE, OTHER ==
[2025-05-03 11:36] VITALS: PULSE 85
[2025-05-03 12:10] LABS: BASOPHILS PERCENT AUTO 0.6 % (0.0-1.0); EOSINOPHILS PERCENT AUTO 5.4 % (1.0-3.0); LYMPHOCYTES PERCENT AUTO 29.3 % (20.5-50.1); MONOCYTES PERCENT AUTO 7.2 % (2-8); NEUTROPHILS PERCENT AUTO 57.5 % (42.2-75.2); PLATELET COUNT,PLT 240 10^3/uL (150-450); RED BLOOD CELL COUNT 3.80 10^6/uL (4.2-5.4); WHITE BLOOD CELL COUNT,WBC 6.2 10^3/uL (5.0-10.0)
[2025-05-03 12:32] LABS: APPEARANCE,URINE CLEAR (CLEAR); GLUCOSE,URINE NEGATIVE (NEGATIVE); OCCULT BLOOD,URINE NEGATIVE (NEGATIVE)
[2025-05-03 12:41] LABS: ALANINE AMINOTRANSFERASE,ALT 26.0 U/L (14-59); ASPARTATE AMNIOTRANSFERASE,AST 14.0 U/L (15-37); BILIRUBIN TOTAL 0.3 mg/dL (0.2-1.0); BLOOD UREA NITROGEN,BUN 19.0 mg/dL (7-18); CARBON DIOXIDE,CO2 30.0 mmol/L (21-32); CHLORIDE,CL 101.0 mmol/L (98-107); CREATININE 0.52 mg/dL (0.55-1.02); EST CRCL DRUG DOSING (CG) 84.44 mL/min; GLUCOSE RANDOM 95.0 mg/dL (70-99); POTASSIUM,K 4.6 mmol/L (3.5-5.1); PROTEIN TOTAL,TP 6.4 g/dL (6.4-8.2); SODIUM,NA 137.0 mmol/L (136-145)
[2025-05-03 12:45] LABS: A/G RATIO 0.94; ESTIMATED GFR 108.0 mL/min (>=60)
[2025-05-03 13:20] VITALS: BP 132/64
== END 2025-05-03 13:20 | disposition home or self-care (01) ==
LOC: DL.ED 11:26
DX: L98.9 Disorder of the skin and subcutaneous tissue, unspecified (principal); Z96.0 Presence of urogenital implants
CPT/HCPCS: 36415; 80053; 81003; 83605; 85025; 99282; 99283; J7030